=== PATIENT | male | born 1985 | race Caucasian/White ===

== ENCOUNTER 2022-01-16 09:24 | Outpatient (REF) | payer BC, SELFPAY ==
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
== END 2022-01-16 09:25 | disposition home or self-care (01) ==
LOC: HO.SH 09:24
PROVIDERS: PCP Internal Medicine; Visit Provider Registered Nurse
DX: Z01.118 Encounter for examination of ears and hearing with other abnormal findings (principal); H93.293 Other abnormal auditory perceptions, bilateral
CPT/HCPCS: 92552; 92556; 92567; 92700

== ENCOUNTER 2023-04-12 11:13 | Outpatient (REF) | payer BC, SELFPAY ==
--- NOTE | ~2023-04-12 | XR_ITS ---
EXAMINATION: XR LUMBOSACRAL SPINE WITH OBLIQUES CLINICAL INFORMATION: Lumbar pain with sciatica COMPARISON: None available. TECHNIQUE: AP, flexion, extension views and lateral views of the lumbar spine. Lateral view of the lumbosacral junction. FINDINGS: There is mild dextroscoliosis of lumbar spine. There are 5 not ribs bearing vertebral bodies. Vertebral bodies are well aligned and intervertebral discs are preserved. Pedicles are intact. There is no instability on flexion and extension views. No evidence of spondylolysis or spondylolisthesis. XR/XR lumbar spine 4V min IMPRESSION: Unremarkable examination.
== END 2023-04-12 11:14 | disposition home or self-care (01) ==
LOC: HO.HOSX 11:13
PROVIDERS: PCP Internal Medicine; Visit Provider Physician Assistant
DX: M54.40 Lumbago with sciatica, unspecified side (principal)
CPT/HCPCS: 72110

== ENCOUNTER 2023-04-28 07:53 | Emergency (ER) | payer BC, SELFPAY ==
[2023-04-28 07:54] VITALS: BP 143/102; PULSE 83; RESP 18; TEMP 36.1; O2SAT 96; BMI 29.1
--- NOTE | 2023-04-28 09:37 | ED_ITS ---
HPI - Back Pain/Injury General Chief Complaint: Back Pain/Injury Stated Complaint: back pain Time Seen by Provider: 04/28/23 09:08 Source: patient Mode of arrival: ambulatory Limitations: no limitations History of Present Illness HPI Narrative: 37-year-old male with a history of intermittent chronic back pain for the last 5 years after a sledding injury presents to the ER with complaints of worsening back pain since after visiting his chiropractor. Of note, the patient was seen by our spine doctors on April 12 and is waiting for insurance authorization for an MRI of his lumbar spine. He did have x-rays on April 12 it but these results are not available for review. In his experience he has had intermittent back pain which is improved with Flexeril and prednisone. He has been taking Motrin for the pain since but having continued symptoms. He does have pain which radiates to both of his legs right greater than left. No numbness or tingling. No numbness in the groin. No bowel or bladder incontinence. No fevers or chills. Related Data Home Medications Medication Instructions Recorded Confirmed amlodipine 10 mg tablet 10 mg PO DAILY 10/12/22 azelastine 137 mcg (0.1 %) nasal intranasal 10/12/22 spray aerosol cetirizine 10 mg tablet (Zyrtec) 10 mg PO DAILY PRN 10/12/22 lisinopril 20 mg tablet 20 mg PO DAILY 10/12/22 omeprazole 20 mg capsule,delayed 20 mg PO DAILY 10/12/22 release Previous Rx's Medication Instructions Recorded cyclobenzaprine 10 mg tablet 10 mg PO Q8H PRN muscle spasm #15 04/28/23 tabs ibuprofen 800 mg tablet 800 mg PO Q8H PRN pain #30 tabs 04/28/23 prednisone 20 mg tablet 60 mg PO DAILY 5 days #15 tabs 04/28/23 Allergies Allergy/AdvReac Type Severity Reaction Status Date / Time No Known Allergies Allergy Verified 04/28/23 07:54 Review of Systems Review of Systems: Yes all other systems are reviewed and are negative Constitutional: Constitutional: Reports no additional constitutional complaints, Denies body ache(s), Denies chills, Denies fever(s), Denies headache(s) and Denies weakness Eyes: Eyes: Reports no additional eye complaints and Denies change in vision ENT: Reports system reviewed and no additional complaints, except as documented, Denies dizziness, Denies headache(s), Denies nasal congestion, Denies nasal discharge and Denies neck pain Cardiovascular: Cardiovascular: Reports no additional cardiovascular complaints, Denies chest pain, Denies leg edema and Denies dyspnea Respiratory: Respiratory: Reports no additional respiratory complaints, Denies cough and Denies dyspnea Gastrointestinal: Gastrointestinal: Reports no additional gastrointestinal complaints, Denies abdominal pain, Denies diarrhea, Denies nausea and Denies vomiting Genitourinary: Genitourinary: Denies urinary incontinence Musculoskeletal: Musculoskeletal: Reports no additional musculoskeletal complaints, Reports back pain, Denies arthralgias, Denies joint swelling, Denies neck pain, Denies numbness, Reports radiating pain into limb and Denies tingling Integumentary/Breasts: Skin/Breast: Reports system reviewed and no additional complaints, except as docu and Denies rash Neurologic: Reports system reviewed and no additional complaints, except as documented, Denies Abnormal speech present, Denies dizziness, Denies h eadache(s), Denies numbness, Denies tingling and Denies weakness PMFSH Past Medical History Attestation statement: The following information was validated with the patient. Source: old records reviewed and nursing notes reviewed Social History Social History Advance Directives: No Advance Directives Information Provided: Yes Physical Exam Vital Signs: Vital Signs: Last Vital Signs Temp 97 F 04/28/23 07:54 Pulse 83 04/28/23 07:54 Resp 18 04/28/23 07:54 BP 143/102 H 04/28/23 07:54 Pulse Ox 96 04/28/23 07:54 BMI result Body Mass Index 29.1 Const: General: cooperative, healthy appearing, comfortable and no acute distress Orientation/consciousness: patient oriented x3 Limitations: no limitations HEENT: Head: Yes normal to inspection Ears: hearing grossly normal bilaterally General nose exam: Normal external nose present Face and sinus: Yes normal facial exam Mouth: Normal oral and palatal mucosa present Throat: Yes posterior oropharynx normal Eyes: General: appearance normal, both eyes and all related structures Pupils: Equal, round and reactive pupils present Neck: Neck: Yes normal visual inspection Chest: Chest palpation & inspection: normal inspection of the chest Resp: Effort & Inspection: normal respiratory effort Auscultation: clear to auscultation bilaterally Cardio: Rate: regular rate Rhythm: regular rhythm Peripheral pulses: Peripheral pulses 2+ throughout GI: Inspection: Yes normal to inspection Palpation (GI): Soft to palpation and nontender Auscultation: normal bowel sounds Back/Spine/Pelvis: Other: There is tenderness the lumbar spine with no palpable step-offs or deformities. Straight leg raise is normal Thoracic/Lumbar Spine: thoracic and lumbar spine normal to inspection Skin: General skin exam: no rashes or lesions noted Neuro: General: patient oriented x3, no focal motor deficits and normal sensation to monofilament Cranial nerves: Yes Equal, round and reactive pupils present Cognition (Neuro): normal cognition Speech: No Abnormal sp eech present Gait exam (Neuro): Normal gait present Motor exam (neuro): 5/5 motor strength present throughout Sensory Exam: Normal double simultaneous stimulation for sensation Deep tendon reflexes (DTR's): Right patellar reflex intensity grade: 2+ and Left patellar reflex intensity grade: 2+ Extrem: General: Yes normal to inspection Medications Administered Discontinued Medications Generic Name Dose Route Start Last Admin Trade Name Deacon PRN Reason Stop Dose Admin Diazepam 2 mg 04/28/23 09:30 04/28/23 09:41 Diazepam 2 Mg Tablet PO 04/28/23 09:31 2 mg ONCE ONE Administration Ketorolac Tromethamine 60 mg 04/28/23 09:30 04/28/23 09:40 Ketorolac Tromethamine 60 Mg/2 Ml Vial IM 04/28/23 09:31 60 mg ONCE ONE Administration Medical Decision Making Medical Decision Making [facility] Narrative: 37-year-old male here with acute on chronic lower back pain after seeing his chiropractor on . Patient is currently pending an outpatient MRI of his lumbar spine which was ordered by our Spine associates on April 12. On exam he has no overt neurological deficits or red flag symptoms. Likely lumbar strain Patient will be given Toradol and Valium in the emergency room I will send him home with Flexeril, NSAIDs, prednisone with recommendations to follow-up with the spine associates tomorrow Reviewed worrisome signs and symptoms of when to return to the emergency room. Comfortable plan for discharge home. Differential Diagnosis Differential Diagnoses: The differential diagnosis associated with the presentation includes Lumbar radiculopathy, herniated this Low concern for cord compression, cauda equina, epidural abscess, malignancy, fracture Discharge Plan Discharge Clinical Impression: Lumbar radiculopathy Patient Disposition: Home, Self-Care Instructions: Lumbar Radiculopathy (ED) Additional Instructions: Heat or ice to the back Gentle stretching No heavy lifting or bending Follow-up with Spine associates this week Return for fever, incontinence of stool, numbness in the groin, worsening pain Prescriptions: New prednisone 20 mg tablet 60 mg PO DAILY 5 Days Qty: 15 0RF cyclobenzaprine 10 mg tablet 10 mg PO Q8H PRN (Reason: muscle spasm) Qty: 15 0RF ibuprofen 800 mg tablet 800 mg PO Q8H PRN (Reason: pain) Qty: 30 0RF No Action lisinopril 20 mg tablet 20 mg PO DAILY amlodipine 10 mg tablet 10 mg PO DAILY omeprazole 20 mg capsule,delayed release(DR/EC) 20 mg PO DAILY azelastine 137 mcg (0.1 %) aerosol,spray intranasal cetirizine [Zyrtec] 10 mg tablet 10 mg PO DAILY PRN Referrals: Tyler Scott PA [Physician Technical Solution Architect] - 1 week Stand Alone Forms: Work/School Release Interventions: ED Discharge Assessment Last Done: 04/28/23 10:09 Discharge Date/Time: 04/28/23 10:09
[2023-04-28] MEDS: Ketorolac Tromethamine 60 MG/2 ML VIAL IM (09:40)
[2023-04-28] MEDS: diazePAM 2 MG TABLET PO (09:41)
== END 2023-04-28 10:09 | disposition home or self-care (01) ==
PROVIDERS: Emergency Provider Student in an Organized Health Care Education/Training Program; PCP Internal Medicine
DX: M54.16 Radiculopathy, lumbar region (principal)
CPT/HCPCS: 96372; 99283; 99284; J1885

== ENCOUNTER 2023-05-07 19:33 | Outpatient (REF) | payer BC, SELFPAY ==
--- NOTE | ~2023-05-07 | MR_ITS ---
EXAMINATION: MR LUMBAR SPINE WITHOUT CONTRAST CLINICAL INFORMATION: Right leg pain COMPARISON: None TECHNIQUE: MRI of the lumbar spine was obtained using routine sequences without contrast. FINDINGS: Trace retrolisthesis of L5 on S1. Mild rightward curvature of the lumbar spine. No suspicious marrow signal or focal osseous lesion. No significant marrow edema. The vertebral body heights are maintained. L5-S1 disc desiccation. The conus medullaris terminates at the level of T12-L1. The distal spinal cord is normal in appearance. The cauda equina nerve roots appear normal. No significant abnormalities of the paraspinal musculature. Limited evaluation of the intra-abdominal structures without significant abnormalities. The abdominal aorta is of normal contour and caliber. SPINAL LEVELS: L1-L2: No significant spinal canal or neuroforaminal narrowing. L2-L3: No significant spinal canal or neuroforaminal narrowing. L3-L4: No significant spinal canal or neuroforaminal narrowing. Minimal disc bulge. L4-L5: No significant spinal canal or neuroforaminal narrowing. Minimal disc bulge. L5-S1: No significant spinal canal or neuroforaminal narrowing. Shallow disc bulge with superimposed small right subarticular protrusion contacts but does not significantly displace the traversing right S1 nerve root. MR/MR lumbar spine wo con IMPRESSION: Mild degenerative disc disease at L5-S1 with small right subarticular disc protrusion which contacts but does not significantly displace the traversing right S1 nerve root. Otherwise unremarkable MRI of the lumbar spine.
== END 2023-05-07 19:34 | disposition home or self-care (01) ==
LOC: HO.MRI 19:33
PROVIDERS: PCP Internal Medicine; Visit Provider Physician Assistant
DX: M54.50 Low back pain, unspecified (principal)
CPT/HCPCS: 72148

== ENCOUNTER 2023-05-27 08:36 | Outpatient (AMB) | payer BC, SELFPAY ==
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
[2023-05-27 08:47] VITALS: BP 138/72; PULSE 99; RESP 18; O2SAT 96; BMI 29.7
== END 2023-05-27 09:18 | disposition home or self-care (01) ==
PROVIDERS: PCP Internal Medicine; Visit Provider Anesthesiology
DX: M51.36 Other intervertebral disc degeneration, lumbar region (principal); M54.40 Lumbago with sciatica, unspecified side; M46.1 Sacroiliitis, not elsewhere classified; G89.4 Chronic pain syndrome; M53.3 Sacrococcygeal disorders, not elsewhere classified
CPT/HCPCS: 99204

== ENCOUNTER → 2023-05-27 08:36 | Outpatient (BNVA) | payer BC, SELFPAY | PROVIDERS: PCP Internal Medicine; Visit Provider Anesthesiology ==

== ENCOUNTER 2023-08-20 06:01 | Outpatient (REF) | payer BC, SELFPAY ==
--- NOTE | ~2023-08-20 | FL_ITS ---
EXAMINATION: XR FLUOROSCOPY WITH IMAGES CLINICAL INFORMATION: Sacrococcygeal disorders, not elsewhere classified. COMPARISON: None available. TECHNIQUE: Fluoroscopy Supervised By: Dr. René Penaloza. Fluoroscopy Time: 0.1 minute. Cumulative Dose: 3.3 mGy. DAP: 0.0574 Gycm2. Images: 1. FINDINGS: Images demonstrate needle placement and contrast injection over the right sacroiliac joint FL/FL guidance in treatment room IMPRESSION: Fluoroscopy guidance for right sacroiliac joint injection
== END 2023-08-20 06:02 | disposition home or self-care (01) ==
LOC: CF 06:01
PROVIDERS: Visit Provider Anesthesiology
DX: M53.3 Sacrococcygeal disorders, not elsewhere classified (principal); M51.36 Other intervertebral disc degeneration, lumbar region; M54.40 Lumbago with sciatica, unspecified side; M46.1 Sacroiliitis, not elsewhere classified
CPT/HCPCS: 27096; J2795; Q9967

== ENCOUNTER 2023-08-20 07:21 | Outpatient (AMB) | payer BC, SELFPAY ==
[2023-08-20 07:27] VITALS: BP 124/82; PULSE 70; RESP 16; O2SAT 98; BMI 29.7
--- NOTE | 2023-08-20 07:27 | MHC.OFFVIS ---
Intake Vital Signs 08/20/23 07:27 08/20/23 08:31 Height 5 ft 10 in 5 ft 10 in Weight 207 lb 207 lb BMI 29.7 29.7 BP 124/82 124/80 Blood Pressure Location Lt brachial Rt brachial Position Sitting Sitting Respiration 16 16 Pulse 70 73 Pulse Source Pulse Oximeter Pulse Oximeter Pulse Oximetry (%) 98 97 Oxygen Delivery Method Room Air Room Air Comment Pre-Op post-op Intake Visit Reasons: R DX SIJ INJ/LOCAL Allergies No Known Allergies Allergy (Verified 08/20/23 08:32) Physical Exam Vital Signs: Last Vital Signs Pulse 73 08/20/23 08:31 Resp 16 08/20/23 08:31 BP 124/80 08/20/23 08:31 Pulse Ox 97 08/20/23 08:31 Oxygen Delivery Method Room Air 08/20/23 08:31 BMI result Body Mass Index 29.7 Assessment & Plan Assessment & Plan (1) Disc degeneration, lumbar: Code(s): M51.36 - Other intervertebral disc degeneration, lumbar region (2) Back pain of lumbar region with sciatica: Code(s): M54.40 - Lumbago with sciatica, unspecified side (3) Chronic pain syndrome: Code(s): G89.4 - Chronic pain syndrome (4) Sacroiliitis: Code(s): M46.1 - Sacroiliitis, not elsewhere classified (5) Sacroiliac joint dysfunction of right side: Code(s): M53.3 - Sacrococcygeal disorders, not elsewhere classified Plan: Right diagnostic sacroiliac joint injection Informed consent was explained thoroughly to the patient. All questions about benefits and risks for the procedure were answered. Patient came to the operating room and was positioned prone on the operating table with the pillow under the pelvis. Time out was performed delineating name and of the patient, allergies and the nature of the procedure. The lower back and buttocks of the patient were prepped with ChloraPrep prepped and draped with sterile utility towels. C-arm was brought over the operating field and sq picture of patient's pelvis was demonstrated on the screen. For the right joint tilting C-arm contralateral to the site of the joint the most posterior portion of the joints was superimposed with anterior silhouette of the joint. Skin was injected in the projection of the joint slightly medial to the location of the joint with 25 gauge 1/2 inch needle using local lidocaine 2% .After that 22 gauge 3 and 1/2 inch needle was driven to the right joint in tunnel vision fashion. When needle entered the joint capsule injection of the contrast was performed demonstrating intra-articular and minimally periarticular spread of the contrast. After that 4 cc. of ropivacaine 0.5% was injected into the joint. Upon completion of the injections the needle was removed Sterile dressing was applied. Upon completion of the injection patient was taken outside of the operating room to the recovery room where recovered uneventfully. Plan He was referred by neuro surgery to perform which I think was meant epidural steroid injections. However at this moment I would like to perform diagnostic right sacroiliac joint injection 1st to make evaluation of this patient's pain. If these sacroiliac joint injection would not result in any pain improvement I will address the issue of L5-S1 disc protrusion more to the right with contact but not displacement of the right S1 passing nerve root. 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 I will schedule his procedure as the 1st case in the morning so he can attend his work after the procedure and see how the injection affect his mobility and work function. He will complete his pain diary after the procedure. After the injection will meet again and we will discuss the possibility of further treatment. Orders: Orders FL guidance in treatment room Today M53.3 - Sacrococcygeal disorders, not elsewhere classified Coding Level of Care Code Procedure Only Diagnoses Disc degeneration, lumbar M51.36 Back pain of lumbar region with sciatica M54.40 Chronic pain syndrome G89.4 Sacroiliitis M46.1 Sacroiliac joint dysfunction of right side M53.3
[2023-08-20 08:31] VITALS: BP 124/80; PULSE 73; RESP 16; O2SAT 97; BMI 29.7
== END 2023-08-20 08:15 | disposition home or self-care (01) ==
LOC: HO.PMCPRC 07:21
PROVIDERS: PCP Internal Medicine; Visit Provider Anesthesiology
DX: M46.1 Sacroiliitis, not elsewhere classified (principal); M53.3 Sacrococcygeal disorders, not elsewhere classified
CPT/HCPCS: 27096

== ENCOUNTER 2023-08-22 08:57 | Outpatient (AMB) | payer BC, SELFPAY ==
[2023-08-22 09:10] VITALS: BP 140/72; PULSE 73; RESP 16; O2SAT 98; BMI 30.7
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
== END 2023-08-22 10:08 | disposition home or self-care (01) ==
PROVIDERS: PCP Internal Medicine; Visit Provider Anesthesiology
DX: M51.36 Other intervertebral disc degeneration, lumbar region (principal); M54.40 Lumbago with sciatica, unspecified side; G89.4 Chronic pain syndrome; M46.1 Sacroiliitis, not elsewhere classified; M53.3 Sacrococcygeal disorders, not elsewhere classified
CPT/HCPCS: 99214

== ENCOUNTER → 2023-08-22 08:57 | Outpatient (BNVA) | payer BC, SELFPAY | PROVIDERS: PCP Internal Medicine; Visit Provider Anesthesiology ==

== ENCOUNTER 2024-03-17 08:06 | Outpatient (AMB) | payer SELFPAY ==
--- NOTE | 2024-03-17 08:37 | AM.OFFWIN_ITS ---
Intake Vital Signs 3 03/17/24 08:38 Height 5 ft 10 in Weight 213 lb 6 oz BMI 30.6 BP 134/90 H Blood Pressure Location Lt brachial Position Sitting Pulse 80 Pulse Source Pulse Oximeter Pulse Oximetry (%) 97 Oxygen Delivery Method Room Air Intake Visit Reasons: EP Pain in right foot / no injury Patient Tobacco Use Status: Never used Tobacco Allergies No Known Allergies Allergy (Verified 03/17/24 08:40) Medication List - Last Reviewed 03/17/24 by Roz Lewis MA amlodipine 10 mg PO DAILY azelastine intranasal cetirizine (Zyrtec) 10 mg PO DAILY PRN ibuprofen 800 mg PO Q8H PRN lisinopril 20 mg PO DAILY omeprazole 20 mg PO DAILY Do you need a note to return to daycare/school/sports/work: Yes HPI EP Pain in right foot / no injury 2 HPI0 Details 38-year-old gentleman came in today to b e evaluated for right foot pain Patient says that he went to sleep without any pain and woke up this morning with pain and burning sensation in his right foot Now having difficulty walking There is no injury or trauma Patient does have chronic lower back pain which radiates to right side off and on On examination patient has developed early signs of shingles with to small papules on lateral anterior aspect and 1 close to heal on the right side Patient is feeling sensitivity to touch in that area and also complaining of pain in that area He is able to move his toes Dorsalis pedis pulses 2+ Ankle with full range of motion I am treating him for shingles with famciclovir and prednisone Patient is to follow up with PCP [facility] Social History Patient Tobacco Use Status: Never used Tobacco Review of Systems Const All systems reviewed & are unremarkable except as noted in HPI and below Physical Exam Vital Signs: Last Vital Signs Pulse 80 03/17/24 08:38 BP 134/90 H 03/17/24 08:38 Pulse Ox 97 03/17/24 08:38 Oxygen Delivery Method Room Air 03/17/24 08:38 BMI result Body Mass Index 30.6 Const General: no acute distress Orientation/consciousness: patient oriented x3 Eyes General: appearance normal, both eyes and all related structures Resp Effort & Inspection: normal respiratory effort and able to speak in complete sentences Neuro General: patient oriented x3 Extrem Ankle/foot/toe images: 2 1. Small macular lesions 2. Tender to touch and pressure 3. Psych Mental Status: mental status grossly normal Assessment & Plan Assessment & Plan (1) Shingles: Code(s): B02.9 - Zoster without complications Qualifiers: Herpes zoster complications: without complications Qualified Code(s): B 02.9 - Zoster without complications (2) Foot pain, right: Code(s): M79.671 - Pain in right foot Plan 38-year-old gentleman came in today to be evaluated for right foot pain Patient says that he went to sleep without any pain and woke up this morning with pain and burning sensation in his right foot Now having difficulty walking There is no injury or trauma Patient does have chronic lower back pain which radiates to right side off and on On examination patient has developed early signs of shingles with to small papules on lateral anterior aspect and 1 close to heal on the right side Patient is feeling sensitivity to touch in that area and also complaining of pain in that area He is able to move his toes Dorsalis pedis pulses 2+ Ankle with full range of motion I am treating him for shingles with famciclovir and prednisone Patient is to follow up with PCP Medications: New 2 famciclovir 500 mg PO Q8H 7 days 21 tabs 0RF prednisone 20 mg PO DAILY 5 days 5 tabs 0RF Coding Level of Care Code Est Pt Level 3 (57182) Diagnoses Herpes zoster without complication B02.9 Herpes zoster complications: without complications Foot pain, right M79.671
[2024-03-17 08:38] VITALS: BP 134/90; PULSE 80; O2SAT 97; BMI 30.6
== END 2024-03-17 09:15 | disposition home or self-care (01) ==
PROVIDERS: PCP Internal Medicine; Visit Provider Internal Medicine
DX: B02.9 Zoster without complications (principal); M79.671 Pain in right foot
CPT/HCPCS: 99213